=== PATIENT | male | born 1945 | race Caucasian/White ===

== ENCOUNTER 2017-07-14 11:21 | Inpatient (IN) | payer MEDICARE, BC ==
[~2017-07-14] VITALS: Ht 182.9 cm; Wt 88.8 kg
[2017-09-16] VITALS (12 sets, daily range): BP systolic 94–133; BP diastolic 54–75; PULSE 68–80; TEMP 98–98.7
[2017-09-16 06:12] LABS: BASO % 0.1 % (0.0-2.0); EOS # 0.1 (0.0-0.7); EOS % 1.5 % (0-4.0); GRAN % 73.4 % (42.2-75.2); HEMOGLOBIN 12.4 g/dl (13.5-18.0); LYMPH % 12.4 % (20.0-51.0); MEAN CELL VOLUME 95 fl (80.0-100.0); MEAN CORPUSCULAR HEMOGLOBIN 30 pg (27.0-31.0); MEAN CORPUSCULAR HGB CONC 31 g/dl (33.0-37.0); MEAN PLATELET VOLUME 9.7 fl (7.4-10.4); MONO % 12.1 % (1.7-9.3); PLATELET COUNT 248 K/mm3 (130-400); RED BLOOD COUNT 4.21 M/mm3 (4.20-5.60); REDCELL DISTRIBUTION WIDTH-CV 13.8 % (11.5-14.5)
[2017-09-16 06:17] LABS: INR 1.2 (0.8-3.0); PROTHROMBIN TIME 13.6 SECONDS (9.7-12.8)
[2017-09-16 06:23] LABS: CALCIUM 9.6 mg/dL (8.4-10.2); CREATININE, serum 1.76 mg/dL (0.66-1.25); POTASSIUM 4.6 mmol/L (3.4-5.0)
[2017-09-16] MEDS ORDERED: COUMADIN4 MG PO (06:43)
[2017-09-16] MEDS ORDERED: WELLBUTRIN 75MG75 MG PO (06:44)
[2017-09-16] MEDS ORDERED: DEPAKOTE ER 50500 MG PO (06:45)
[2017-09-16] MEDS ORDERED: TENORMIN 5050 MG/TAB PO (06:46)
[2017-09-16] MEDS ORDERED: CIPRO 250MG TA250 MG PO (06:47)
[2017-09-16] MEDS ORDERED: TYLENOL 500MG500 MG PO (06:48)
[2017-09-17 01:06] VITALS: BP 96/43; PULSE 69; TEMP 98.6
[2017-09-17 06:29] VITALS: BP 114/54; BP 120/67; PULSE 101; PULSE 65; TEMP 97.8; TEMP 98.4
[2017-09-17 06:54] LABS: HEMATOCRIT 34.8 % (42.0-52.0); HEMOGLOBIN 10.7 g/dl (13.5-18.0)
[2017-09-17 07:47] VITALS: BP 97/50; PULSE 60; TEMP 97.8
[2017-09-17 10:42] VITALS: BP 91/53; PULSE 61; TEMP 98.3
[2017-09-17 15:56] VITALS: BP 107/46; PULSE 73; TEMP 98.6
[2017-09-17 20:12] VITALS: BP 120/52; PULSE 71; TEMP 98.2
[2017-09-18] VITALS (7 sets, daily range): BP systolic 93–119; BP diastolic 41–82; PULSE 63–78; TEMP 97.8–99.1
[2017-09-18 07:31] LABS: HEMATOCRIT 34.1 % (42.0-52.0); HEMOGLOBIN 10.6 g/dl (13.5-18.0)
[2017-09-18 07:59] LABS: INR 1.2 (0.8-3.0); PROTHROMBIN TIME 13.7 SECONDS (9.7-12.8)
[2017-09-19 01:52] VITALS: BP 106/53; PULSE 77; TEMP 97.5
[2017-09-19 05:20] VITALS: BP 117/58; PULSE 73; TEMP 98.7
[2017-09-19 06:39] LABS: HEMOGLOBIN 10.9 g/dl (13.5-18.0)
[2017-09-19] MEDS ORDERED: NORCO 325 MG-7.1 TAB PO (07:03)
[2017-09-19 07:25] LABS: INR 1.2 (0.8-3.0); PROTHROMBIN TIME 14.4 SECONDS (9.7-12.8)
[2017-09-19 09:40] VITALS: BP 122/65; PULSE 78; TEMP 99.4
[2017-09-19 14:57] VITALS: BP 122/76; BP 124/59; PULSE 67; PULSE 81; TEMP 96.9; TEMP 98.3
[2017-09-19 17:27] VITALS: BP 109/53; PULSE 67; TEMP 97.9
[2017-09-19 21:47] VITALS: BP 111/47; PULSE 66; TEMP 98.4
[2017-09-20 04:32] VITALS: BP 111/62; PULSE 74; TEMP 98.2
[2017-09-20 07:56] LABS: INR 1.3 (0.8-3.0); PROTHROMBIN TIME 14.9 SECONDS (9.7-12.8)
[2017-09-20 10:03] VITALS: BP 106/61; PULSE 62; TEMP 97.4
[2017-09-20 13:33] VITALS: BP 115/64; PULSE 63; TEMP 97.5
[2017-09-20 17:23] VITALS: BP 108/63; PULSE 65; TEMP 98.1
[2017-09-20 21:46] VITALS: BP 120/76; PULSE 69; TEMP 98
[2017-09-21 02:04] VITALS: BP 115/62; PULSE 63; TEMP 98.3
[2017-09-21 05:23] VITALS: BP 113/99; PULSE 82; TEMP 98
[2017-09-21 09:05] VITALS: BP 113/99; PULSE 82; TEMP 98
[2017-09-21 13:33] VITALS: BP 123/54; PULSE 65; TEMP 98.5
== END 2017-09-21 14:15 | disposition swing bed (61) | DRG 240 ==
LOC: INPTSU 09-16 05:28 → SURG 09-16 07:30 → JCC 09-16 11:15
PROVIDERS: Nurse Anesthetist, Certified Registered; Orthopaedic Surgery; Physician Assistant
PROC: 0Y6C0Z2 Detachment at Right Upper Leg, Mid, Open Approach (ICD-10-PCS; principal; 2017-09-16 07:30)
DX: I83.014 Varicose veins of right lower extremity with ulcer of heel and midfoot (principal); M86.8X7 Other osteomyelitis, ankle and foot; I82.5Z3 Chronic embolism and thrombosis of unspecified deep veins of distal lower extremity, bilateral; I83.024 Varicose veins of left lower extremity with ulcer of heel and midfoot; I10 Essential (primary) hypertension; Z79.01 Long term (current) use of anticoagulants
CPT/HCPCS: J0690; J1100; J1885; J2405; J2704; J3010; J7030